=== PATIENT | male | born 1950 | race Caucasian/White ===

== ENCOUNTER 2019-10-26 12:51 | Inpatient (IN) ==
[2019-10-26] MEDS ORDERED: XYLOCAINE 1%/SOD BICARB 20 ML VIAL INFIL ONE (13:01)
--- NOTE | 2019-10-26 13:13 | Emergency Department Note ---
History of Present Illness General Chief complaint: Fall Time Seen by Provider: 10/26/19 12:52 Source: patient and EMS History of Present Illness Provider complaint: Nosebleed Onset (ago): hour(s) (4 AM today) Location: face and left Radiation: non-radiation Severity: moderate Pain Consistency: + intermittent Relieved By: + other (Pressure) Associated symptoms: no chest pain, no cough, no fever/chills, no malaise, no nausea/vomiting and no shortness of breath This is a 69-year-old male who presents with a nosebleed. It started at 4 AM today. He states that it has been bleeding on and off intermittently. This is the third time he had to come to the emergency department for this. He states that approximately 10 AM he started having a nosebleed again. He got up to go to the bathroom and when he did so he felt very lightheaded and fell backwards hitting his head on the doorway causing a laceration to his scalp. He did not pass out. He has mild head pain. He denies any neck pain or any other injury from the fall. He has no back pain, chest pain, shortness of breath, abdominal pain, hip or extremity pain. He takes Coumadin for atrial fibrillation. He denies any black or bloody stools. He has no abdominal pain. He does bruise easily. His nosebleed has not stopped. It is helped somewhat by a nasal clamp. Home Medications Home Medications Medication Instructions Recorded Confirmed Type digoxin [Digitek] 250 mcg PO QDL 02/09/19 10/26/19 History metoprolol succinate 100 mg PO BID 02/09/19 10/26/19 History warfarin 7.5 mg PO DAILY 02/09/19 10/26/19 History Allergies Allergy/AdvReac Type Severity Reaction Status Date / Time No Known Allergies Allergy Verified 10/26/19 14:56 Past Med/Surg History Medical History Atrial flutter Multiple falls Surgical History No pertinent past surgical history Family History Other Cancer Social History Preferred Language: Irish Communication Ability: Effective [place] Extension Agent Required: No Beliefs That Will Affect Care: None Current Living Situation: Spouse Other Information That Helps Us Care for You: No Feels Safe at Home: Yes Safety Concerns: Feels Safe At This Time Smoking Status: Former smoker Tobacco Type: smokeless tobacco ; Do You Dip or Chew Tobacco: No ; Second Hand Exposure: No ; Tobacco Cessation Education Requested by Patient: No Hx Alcohol Use: Yes Alcohol type: beer Alcohol Intake Frequency: Daily Alcohol Intake Frequency Comment: approx 2 beers daily Hx Substance Use: No Review of Systems See HPI for pertinent positives & negatives. and A total of 10 systems reviewed and were otherwise negative Physical Exam Vital Signs Vital Signs - 24 hr 10/26/19 13:00 10/26/19 13:04 10/26/19 13:07 Temperature 36.4 C L Temperature Source Oral Pulse Rate 99 H 97 H Pulse Rate [Apical] Pulse Rate from SpO2 Sensor 124 H 100 H Respiratory Rate 17 21 Blood Pressure 95/50 L 91/50 L Blood Pressure [Left Arm] Blood Pressure Mean 69 68 Blood Pressure Mean [Left Arm] Pulse Oximetry 83 L 96 95 Oxygen Delivery Method Room Air Room Air Sepsis Recent Fever Within 48 Hours No Sepsis Action Taken by Nursing No Action Required 10/26/19 13:30 10/26/19 13:32 10/26/19 13:41 Temperature Temperature Source Pulse Rate 99 H 103 H Pulse Rate [Apical] 103 H Pulse Rate from SpO2 Sensor 95 H Respiratory Rate 16 17 Blood Pressure 80/53 L 82/54 L 86/57 L Blood Pressure [Left Arm] 80/53 L Blood Pressure Mean 57 70 67 Blood Pressure Mean [Left Arm] 62 Pulse Oximetry 94 Oxygen Delivery Method Room Air Sepsis Recent Fever Within 48 Hours Sepsis Action Taken by Nursing 10/26/19 13:52 10/26/19 14:00 10/26/19 14:01 Temperature Temperature Source Pulse Rate 102 H 96 H Pulse Rate [Apical] Pulse Rate from SpO2 Sensor Respiratory Rate 16 13 Blood Pressure 90/64 L 87/59 L Blood Pressure [Left Arm] Blood Pressure Mean 78 76 Blood Pressure Mean [Left Arm] Pulse Oximetry Oxygen Delivery Method Sepsis Recent Fever Within 48 Hours Sepsis Action Taken by Nursing 10/26/19 14:30 10/26/19 14:31 10/26/19 15:00 Temperature Temperature Source Pulse Rate 97 H 101 H 103 H Pulse Rate [Apical] Pulse Rate from SpO2 Sensor Respiratory Rate 20 18 20 Blood Pressure 91/61 L 75/47 L Blood Pressure [Left Arm] Blood Pressure Mean 72 54 Blood Pressure Mean [Left Arm] Pulse Oximetry Oxygen Delivery Method Sepsis Recent Fever Within 48 Hours Sepsis Action Taken by Nursing 10/26/19 15:32 Temperature Temperature Source Pulse Rate 116 H Pulse Rate [Apical] Pulse Rate from SpO2 Sensor Respiratory Rate 21 Blood Pressure 101/58 L Blood Pressure [Left Arm] Blood Pressure Mean 72 Blood Pressure Mean [Left Arm] Pulse Oximetry Oxygen Delivery Method Sepsis Recent Fever Within 48 Hours Sepsis Action Taken by Nursing Constitutional: Vital signs reviewed. Eyes: Pupils are equal round reactive to light. Conjunctiva are noninjected. ENT: Pharynx is clear without erythema or exudate. Active epistaxis from the left nostril. Mucous membranes are moist. Neck supple without meningeal signs. No midline tenderness to the cervical spine. Respiratory: Clear to auscultation bilaterally. Breath sounds are equal bilaterally. Cardiovascular: Irregularly irregular rhythm. Regular rate. GI: Soft, nondistended and nontender. Bowel sounds are present. Musculoskeletal: No peripheral edema. No lower extremity tenderness. Integumentary: 9 cm linear superficial laceration to the top of his head in a sagittal orientation with bleeding from the posterior end. Neurological: The patient is awake and alert. No focal deficits. Psychiatric: Normal affect. Not anxious appearing. Procedures Laceration Laceration 1: Site: scalp Size (cm): 9 Description: linear Depth: simple, single layer Pre-repair: irrigated extensively Skin layer closed with: other (Dermabond) Technique: other (Dermabond) Course Administered Medications Discontinued Medications Sodium Chloride (Nss 1000ml) 500 mls @ 999 mls/hr IV .Q31M ONE Stop: 10/26/19 14:16 Last Infusion: 10/26/19 16:50 Dose: 0 mls/hr Documented by: [id number] Admin: 10/26/19 15:22 Dose: 999 mls/hr Documented by: [id number] Sodium Chloride (Nss 1000ml) 500 mls @ 999 mls/hr IV .Q31M ONE Stop: 10/26/19 15:42 Last Infusion: 10/26/19 15:39 Dose: 0 mls/hr Documented by: [id number] Admin: 10/26/19 15:21 Dose: 999 mls/hr Documented by: [id number] Sodium Chloride (Nss 1000ml) 1,000 mls @ 999 mls/hr IV .Q1H1M ONE Stop: 10/26/19 16:31 Last Infusion: 10/26/19 16:50 Dose: 0 mls/hr Documented by: [id number] Infusion: 10/26/19 16:50 Dose: 0 mls/hr Documented by: [id number] Admin: 10/26/19 15:38 Dose: 999 mls/hr Documented by: [id number] Lidocaine HCl (Buffered Lidocaine 1%) 20 ml INFIL NOW ONE Stop: 10/26/19 13:02 Last Admin: 10/26/19 15:22 Dose: 20 ml Documented by: [id number] Critical Care Time Critical Care Time: Yes Total Critical Care Time: 45 I have personally spent approximately minutes of critical care time in the direct management of this patient. This includes bedside care, interpretation of diagnostic studies, and testing, discussion with consultants, patient, and family members, and other required patient management activities. These minutes are in excess of all separately billable procedures. Medical Decision Making Differential Diagnosis Supratherapeutic INR, ICH, skull fracture, concussion, anemia, dehydration, orthostatic hypotension, epistaxis Medical Records Attestation: I reviewed the patient's medical records. The patient was seen here February 2019 for a nosebleed. At the time his INR was 7. Home Medications Current Medication List: was personally reviewed by me Laboratory Data Attestation: I reviewed the patient's lab results. Result diagrams: 10/26/19 17:32 10/26/19 13:05 Lab Results 10/26/19 10/26/19 10/26/19 Range/Units 13:05 13:05 13:05 WBC (4.8-10.8) K/uL RBC (4.7-6.1) M/uL Hgb (14.0-18.0) g/dL Hct (42-52) % MCV (80-100) fL MCH (25-34) pg MCHC (32-36) g/dL RDW Std Deviation (36.4-46.3) fL RDW Coeff of Salas (11.5-14.5) % Plt Count (130-400) K/uL MPV (7.4-10.4) fL Immature Gran % (Auto) % Neut % (Auto) % Lymph % (Auto) % [place]ack[place]ord % (Auto) % Eos % (Auto) % Baso % (Auto) % Immature Gran # (Auto) (0.00-0.02) K/uL Neut # (Auto) (1.4-6.5) K/uL Lymph # (Auto) (1.2-3.4) K/uL [place]ord # (Auto) (0.11-0.59) K/uL Eos # (Auto) (0-0.5) K/uL Baso # (Auto) (0-0.2) K/uL PT Cancelled 26.1 H INR Cancelled 2.6 H APTT 31.9 H (21.0-31.0) Seconds PTT Ratio 1.1 Sodium 129 L (136-145) mmol/L Potassium 4.6 (3.5-5.1) mmol/L Chloride 95 L (98-107) mmol/L Carbon Dioxide 20 L (21-32) mmol/L Anion Gap 14.0 H (3-11) BUN 14 (7-18) mg/dl Creatinine 0.80 (0.6-1.4) mg/dl Est Cr Clr Drug Dosing 95.7 ml/min Est GFR ( Amer) 105.6 Est GFR (Non-Af Amer) 91.1 BUN/Creatinine Ratio 18.1 (10-20) Glucose 94 (70-99) mg/dl Calcium 7.9 L (8.5-10.1) mg/dl Magnesium 1.5 L (1.8-2.4) mg/dl Total Bilirubin 0.9 (0.2-1) mg/dl AST 28 (15-37) U/L ALT 36 (12-78) U/L Alkaline Phosphatase 46 (45-117) U/L Troponin I < 0.015 (0-0.045) ng/ml Total Protein 5.8 L (6.4-8.2) gm/dl Albumin 2.9 L (3.4-5.0) gm/dl Globulin 2.9 (2.5-4.0) gm/dl Albumin/Globulin Ratio 1.0 (0.9-2) TSH 12.900 H (0.300-4.500) uIu/ml Free T4 0.89 (0.8-1.6) ng/dl Blood Type Antibody Screen Crossmatch 10/26/19 10/26/19 Range/Units 13:05 14:18 WBC 7.42 (4.8-10.8) K/uL RBC 1.91 L (4.7-6.1) M/uL Hgb 7.2 L (14.0-18.0) g/dL Hct 21.0 L (42-52) % MCV 109.9 H (80-100) fL MCH 37.7 H (25-34) pg MCHC 34.3 (32-36) g/dL RDW Std Deviation 55.9 H (36.4-46.3) fL RDW Coeff of Salas 14.1 (11.5-14.5) % Plt Count 157 (130-400) K/uL MPV 9.7 (7.4-10.4) fL Immature Gran % (Auto) 1.3 % Neut % (Auto) 72.9 % Lymph % (Auto) 12.1 % Shackelford % (Auto) 12.8 % Eos % (Auto) 0.5 % Baso % (Auto) 0.4 % Immature Gran # (Auto) 0.10 H (0.00-0.02) K/uL Neut # (Auto) 5.40 (1.4-6.5) K/uL Lymph # (Auto) 0.90 L (1.2-3.4) K/uL [place]ord # (Auto) 0.95 H (0.11-0.59) K/uL Eos # (Auto) 0.04 (0-0.5) K/uL Baso # (Auto) 0.03 (0-0.2) K/uL PT INR APTT (21.0-31.0) Seconds PTT Ratio Sodium (136-145) mmol/L Potassium (3.5-5.1) mmol/L Chloride (98-107) mmol/L Carbon Dioxide (21-32) mmol/L Anion Gap (3-11) BUN (7-18) mg/dl Creatinine (0.6-1.4) mg/dl Est Cr Clr Drug Dosing ml/min Est GFR ( Amer) Est GFR (Non-Af Amer) BUN/Creatinine Ratio (10-20) Glucose (70-99) mg/dl Calcium (8.5-10.1) mg/dl Magnesium (1.8-2.4) mg/dl Total Bilirubin (0.2-1) mg/dl AST (15-37) U/L ALT (12-78) U/L Alkaline Phosphatase (45-117) U/L Troponin I (0-0.045) ng/ml Total Protein (6.4-8.2) gm/dl Albumin (3.4-5.0) gm/dl Globulin (2.5-4.0) gm/dl Albumin/Globulin Ratio (0.9-2) TSH (0.300-4.500) uIu/ml Free T4 (0.8-1.6) ng/dl Blood Type A Positive Antibody Screen NEGATIVE Crossmatch See Detail Imaging Data Radiologist's Impression: HEAD CT NONCONTRAST CT DOSE: 614.27 mGy.cm HISTORY: fall eval for ich TECHNIQUE: Multiaxial CT images of the head were performed without the use of intravenous contrast. Automated exposure control was utilized for this study. A dose lowering technique was utilized adhering to the principles of ALARA. Comparison: Head CT 11/15/2017. Findings: Mild mucosal thickening within the maxillary sinuses. Small fluid levels within the sphenoid sinuses. The mastoid air cells are clear. The calvarium and skull base are intact. There is no mass, hematoma, midline shift, acute infarct. White matter hypodensity is nonspecific but suggestive of microvascular ischemic change. The ventricles and sulci demonstrate mild age- related involutional changes. Impression: 1. No acute intracranial abnormality. 2. Sinus disease as described above. ACT 112: Negative or not required by law. Electronically signed by: Michoacano Panchal M.D. 10/26/2019 2:07 PM Dictated: 10/26/19 1350 Transcribed: 10/26/19 1350 XR chest 1V portable CLINICAL HISTORY: 69 years-old Male presenting with fall eval for infiltrate. TECHNIQUE: Portable upright AP view of the chest was obtained. COMPARISON: None. FINDINGS: Atherosclerosis of the aortic arch. Cardiac silhouette enlarged. Partial obscuration of the left hemidiaphragm with added density of the left lung base. No large effusion though a small left pleural effusion is difficult to exclude. Pleural parenchymal scarring at the apices. No pneumothorax. Degenerative changes of the thoracic spine. Lucency beneath the left hemidiaphragm presumably gaseous distention of stomach. IMPRESSION: 1. Added density of the left lung base may be due to atelectasis, infiltrate, or presence of cardiomegaly. 2. No evidence of volume overload or congestive change. 3. Lucency beneath the left hemidiaphragm presumably gaseous distention of stomach. Correlate for abdominal symptomatology. ACT 112: Negative or not required by law. Electronically signed by: Hugo Fernandez M.D. 10/26/2019 1:19 PM Dictated: 10/26/191316 Transcribed: 10/26/191316 ECG Data Attestation: I personally reviewed and interpreted this ECG as follows: Indication: + weakness Rate (beats per minute): 106 Rhythm: + atrial fibrillation (With RVR) ECG Intervals/blocks: + Normal QRS (Low voltage QRS) ECG ST segments: + ST depression (Less than 1 mm depression in the lateral leads unchanged from prior EKG from June 05, 2008); no ST elevation ECG Findings: no PVCs Comparison ECG Date: from (June 05, 2008) Change: the following changes noted (Atrial fibrillation is new today.) Blood Pressure Blood Pressure Findings: Low blood pressure Head Trauma GCS Score: 15 MDM Narrative I did evaluate the patient as noted above. The patient is presenting after a head injury while on Coumadin. The patient developed a nosebleed at 4 AM which has been going on intermittently throughout the morning. He got up to go the bathroom and developed lightheadedness and hit his head on the doorway. He denies any other injury. He continues to have epistaxis. He did not have syncope. IV access was established. I did place an order for continuous cardiac monitoring. The monitor showed atrial fibrillation with a rate of 99. I did order and personally review the patient's 12-lead EKG as described above. He has atrial fibrillation with mild tachycardia rate of 106. He is low voltage QRS. There are less than [address] depressions in the lateral leads but this was present on his EKG from June 05, 2008. I did order and personally reviewed the images of the patient's chest x-ray as described above. There is a left vincent g density of unclear etiology. He has not had any fever or cough or shortness of breath. I did order and review the patient's blood work as noted in the electronic medical record. He is severely anemic with a hemoglobin of 7.2. He is hyponatremic as well. He has an INR that is therapeutic at 2.6. Troponin is negative. I did order a CT of the head. I did review the images myself as well as the radiology report as described above. There is no evidence of acute intracranial hemorrhage. I did repair the patient scalp laceration as described above. His nose was placed in a nasal clamp and when I remove that he had no bleeding. I did observe him for some time and he had no recurrent bleeding. At 1 point the hospitalist saw the patient and he had some bleeding and I went back to possibly pack the patient. His bleeding had stopped spontaneously and so he declined nasal packing. The patient has been hypotensive throughout his visit here. He was initially given normal saline boluses IV. His blood pressure did improve somewhat but continued to be low. I did order 2 units of packed RBCs to be transfused stat after obtaining informed consent. Presumably he has blood loss possibly from his nosebleed. He does state that he bled quite a bit from his nose at home. He denies having any blood tracking backwards and into his throat. It is possible he has other sources of bleeding and this will need to be investigated further in the hospital. He denies any black or bloody stools. Guaiac testing would likely be positive given that he did swallow some blood throughout the day. I did discuss the test results with the patient. I did discuss the case with the patient case coordinator and hospitalist who assumed care of the patient. Impression & Plan Hypotension due to blood loss, Epistaxis, Symptomatic anemia, Head injury, Laceration of scalp, Fall, Acute hyponatremia, Anticoagulated on Coumadin, Atrial fibrillation with rapid ventricular response Discharge Plan Visit Data *Final* Discharge Date/Time: 10/26/19 16:32 Chief Complaint: Fall ED Provider: Ye Smith Discharge Problem: Hypotension due to blood loss, Epistaxis, Symptomatic anemia, Head injury, Laceration of scalp, Fall, Acute hyponatremia, Anticoagulated on Coumadin, Atrial fibrillation with rapid ventricular response Patient Disposition: Admitted As Inpatient Discharge Instructions Interventions: ED Discharge Assessment Last Done: 10/26/19 16:32 Discharge Problem: Head injury Qualifiers: Encounter type: initial encounter Qualified Code(s): S09.90XA - Unspecified injury of head, initial encounter Laceration of scalp Qualifiers: Encounter type: initial encounter Qualified Code(s): S01.01XA - Laceration without foreign body of scalp, initial encounter Fall Qualifiers: Encounter type: initial encounter Qualified Code(s): W19.XXXA - Unspecified fall, initial encounter
--- NOTE | 2019-10-26 13:20 | XRay Report ---
XR chest 1V portable CLINICAL HISTORY: 69 years-old Male presenting with fall eval for infiltrate. TECHNIQUE: Portable upright AP view of the chest was obtained. COMPARISON: None. FINDINGS: Atherosclerosis of the aortic arch. Cardiac silhouette enlarged. Partial obscuration of the left shelli diaphragm with added density of the left lung base. No large effusion though a small left pleural eff usion is difficult to exclude. Pleural parenchymal scarring at the apices. No pneumothorax. Degenerat lilian changes of the thoracic spine. Lucency beneath the left hemidiaphragm presumably gaseous distenti on of stomach. IMPRESSION: 1. Added density of the left lung base may be due to atelectasis, infiltrate, or presence of cardiom egaly. 2. No evidence of volume overload or congestive change. 3. Lucency beneath the left hemidiaphragm presumably gaseous distention of stomach. Correlate for ab dominal symptomatology. ACT 112: Negative or not required by law. Electronically signed by: Hugo Fernandez M.D. 10/26/2019 1:19 PM
[2019-10-26 13:37] LABS: Alanine Aminotransferase 36 U/L (12-78); Albumin Level 2.9 gm/dl (3.4-5.0); Aspartate Aminotransferase 28 U/L (15-37); BUN Creatinine Ratio 18.1 (10-20); Blood Urea Nitrogen 14 mg/dl (7-18); Calcium 7.9 mg/dl (8.5-10.1); Carbon Dioxide 20 mmol/L (21-32); Chloride 95 mmol/L (98-107); Creatinine Clr Calc Pharmacy 95.7 ml/min; Est GFR (African American) 105.6; Est GFR (Non-African American) 91.1; Glucose 94 mg/dl (70-99); Magnesium 1.5 mg/dl (1.8-2.4); Potassium 4.6 mmol/L (3.5-5.1); Sodium 129 mmol/L (136-145)
[2019-10-26 13:40] LABS: Basophils # (auto) 0.03 K/uL (0-0.2); Basophils % (auto) 0.4 %; Eosinophils # (auto) 0.04 K/uL (0-0.5); Eosinophils % (auto) 0.5 %; Hemoglobin 7.2 g/dL (14.0-18.0); Immature Granulocytes % (auto) 1.3 %; Lymphocytes % (auto) 12.1 %; Mean Corpuscular Hemoglobin 37.7 pg (25-34); Mean Corpuscular Hgb Conc 34.3 g/dL (32-36); Mean Corpuscular Volume 109.9 fL (80-100); Mean Platelet Volume 9.7 fL (7.4-10.4); Monocytes # (auto) 0.95 K/uL (0.11-0.59); Monocytes % (auto) 12.8 %; Neutrophils % (auto) 72.9 %; Platelet Count 157 K/uL (130-400); RDW Coefficient of Variation 14.1 % (11.5-14.5); RDW Standard Deviation 55.9 fL (36.4-46.3); Red Blood Count 1.91 M/uL (4.7-6.1); White Blood Count 7.42 K/uL (4.8-10.8)
[2019-10-26] MEDS ORDERED: SODIUM CHLORIDE 0.9% 1000ML 500 ML IV ONE ×2 (13:46→15:12)
[2019-10-26] MEDS ORDERED: SODIUM CHLORIDE 0.9% 250 ML IV PRN (13:46)
[2019-10-26 13:48] LABS: Alkaline Phosphatase 46 U/L (45-117); Bilirubin,Total 0.9 mg/dl (0.2-1); Globulin 2.9 gm/dl (2.5-4.0); Total Protein 5.8 gm/dl (6.4-8.2); Troponin I < 0.015 ng/ml (0-0.045)
[2019-10-26 13:50] LABS: INR 2.6 (0.9-1.1); Partial Thromboplastin Ratio 1.1; Partial Thromboplastin Time 31.9 Seconds (21.0-31.0); Prothrombin Time 26.1 Seconds (9.0-12.0)
[2019-10-26 14:04] LABS: T4 Free Thyroxine 0.89 ng/dl (0.8-1.6)
--- NOTE | 2019-10-26 14:09 | CT Scan Report ---
HEAD CT NONCONTRAST CT DOSE: 614.27 mGy.cm HISTORY: fall eval for ich TECHNIQUE: Multiaxial CT images of the head were performed without the use of intravenous contrast. A utomated exposure control was utilized for this study. A dose lowering technique was utilized adheri ng to the principles of ALARA. Comparison: Head CT 11/15/2017. Findings: Mild mucosal thickening within the maxillary sinuses. Small fluid levels within the sphenoi d sinuses. The mastoid air cells are clear. The calvarium and skull base are intact. There is no mass , hematoma, midline shift, acute infarct. White matter hypodensity is nonspecific but suggestive of m icrovascular ischemic change. The ventricles and sulci demonstrate mild age-related involutional moeller ges. Impression: 1. No acute intracranial abnormality. 2. Sinus disease as described above. ACT 112: Negative or not required by law. Electronically signed by: Michoacano Panchal M.D. 10/26/2019 2:07 PM
[2019-10-26] MEDS ORDERED: SODIUM CHLORIDE 0.9% 1000ML 1,000 ML IV ONE (15:31)
--- NOTE | 2019-10-26 15:44 | History & Physical Report ---
Date of Service October 26, 2019 Assessment & Plan (1) Symptomatic anemia: This is a 69yo M with a PMH of a flutter on anticoagulation who presents after a nosebleed and subsequent fall at home. Hgb of 7.2 today (last hgb on record was 9.7 in 02/23) -In setting of epistaxis, BP 87/69 with HR of 116 - receiving 2nd liter of NSS -Consented, type & crossed for 2 u prbcs -Repeat H&H ordered for tonight -Monitor vitals closely -Given 5mg vitamin K for coumadin reversal. INR of 2.6- will trend daily (2) Epistaxis: Left-sided epistaxis, bleeding has stopped with nose clamp, no need for packing at this time -Has been a recurrent issue, last nosebleed requiring ED care 1 year prior (3) Multiple falls: Fell this morning following epistaxis, then again in the ED room when his "legs gave out" -Weakness in setting of symptomatic anemia -Fall precautions -PT/OT evaluation -Discharge planning (4) Atrial flutter: Continue metoprolol succinate, digoxin (5) Constipation: Experiencing gas pains, mild distention but no pain -Given GI cocktail, docusate 100mg BID DVT Ppx: SCDs Code status: FULL PCP: Yane Dispo: Admitted to PCU. Discharge planning ordered. Patient seen in collaboration with Dr. Eller. Please see addendum. History of Present Illness Chief Complaint: Epistaxis, fall at home Primary Care Provider: Yahir Che MD This is a 69yo M with a PMH of a flutter on anticoagulation who presents after a nosebleed and subsequent fall at home. Patient states he woke up at 4 in the morning with a nosebleed that persisted on and off. Was getting up to use the bathroom an hour or 2 later and fell in the hallway, landing on the back of his head. Denies loss of consciousness. called an ambulance and patient was brought to the ED for further evaluation. Currently, patient denies any lightheadedness, headache, visual changes, chest pain, palpitations or shortness of breath. Endorses pain on scalp near the laceration site as well as gas pains and some distention of his abdomen. Feels constipated. Denies any paul abdomi nal pain, nausea, vomiting, dysuria, melena or hematochezia. Has had nosebleeds in the past with the most recent one approximately a year ago, per patient. Usually bleeds stop on their own once pressure is applied. Denies needing to see ENT in the past. Is taking Coumadin for history of A flutter and current dose is 7.5 mg daily. Allergies Allergy/AdvReac Type Severity Reaction Status Date / Time No Known Allergies Allergy Verified 10/26/19 14:56 Home Medications Home Medications Medication Instructions Recorded Confirmed Type digoxin [Digitek] 250 mcg PO QDL 02/09/19 10/26/19 History metoprolol succinate 100 mg PO BID 02/09/19 10/26/19 History warfarin 7.5 mg PO DAILY 02/09/19 10/26/19 History Past Med/Surg History Medical History Atrial flutter Multiple falls Surgical History No pertinent past surgical history Family History Other Cancer Social History Preferred Language: Lao Communication Ability: Effective Internal Revenue Agent Required: No Beliefs That Will Affect Care: None Current Living Situation: Spouse Other Information That Helps Us Care for You: No Feels Safe at Home: Yes Safety Concerns: Feels Safe At This Time Smoking Status: Former smoker Tobacco Type: smokeless tobacco ; Do You Dip or Chew Tobacco: No ; Second Hand Exposure: No ; Tobacco Cessation Education Requested by Patient: No Hx Alcohol Use: Yes Alcohol type: beer Alcohol Intake Frequency: Daily Alcohol Intake Frequency Comment: approx 2 beers daily Hx Substance Use: No Review of Systems Review of Systems: At least ten systems reviewed and negative except as noted in the HPI. Physical Exam Physical Exam: General Appearance: WD/WN, vitals as above, elderly male, sitting up in bed, pleasant, conversing easily Head: normocephalic, atraumatic, 9cm laceration that is well-approximated with steri-glue, no bleeding Eyes: normal inspection, PERRL, conjunctivae normal, anicteric sclerae ENT: external ear and nose normal, dried blood surrounding nares, no acute bleeding, clamp in place. Oropharynx normal Neck: trachea midline, no thyromegaly, normal visual inspection Respiratory: normal respiratory effort, lungs clear to auscultation, no wheeze, rales, rhonchi. Normal insp/exp effort, no accessory muscle use Cardiovascular: regular rate, rhythm, no murmur, normal peripheral pulses. Vessels: no JVD or carotid bruit Chest: normal inspection of chest Abdomen/GI: normal bowel sounds, soft, mild distention but nontender, no hepatosplenomegaly Extremities/Musculoskeletal: no cyanosis or clubbing, extremities motor strength 5/5, R dorsum of hand with small area of bruising Neurologic: PERRL, EOMI, accommodation nl, no face palsy, no dysarthria, CN's II-XI intact bilaterally and moves all extremities Psychiatric: A+Ox3, euthymic affect Skin: no rashes, normal color, warm/dry Results & Data Results & Data ([facility]) Vital Signs (Past 12 Hours) Vital Signs Temp Pulse Pulse Resp BP BP Pulse Ox 10/26/19 15:32 116 H 21 101/58 L 10/26/19 15:00 103 H 20 75/47 L 10/26/19 14:31 101 H 18 10/26/19 14:30 97 H 20 91/61 L 10/26/19 14:01 96 H 13 10/26/19 14:00 102 H 16 87/59 L 10/26/19 13:52 90/64 L 10/26/19 13:41 86/57 L 10/26/19 13:32 103 H 17 82/54 L 10/26/19 13:30 99 H 103 H 16 80/53 L 80/53 L 94 10/26/19 13:07 95 10/26/19 13:04 97 H 21 91/50 L 96 10/26/19 13:00 36.4 C L 99 H 17 95/50 L 83 L Laboratory Results Short CBC 10/26/19 Range/Units 13:05 WBC 7.42 (4.8-10.8) K/uL Hgb 7.2 L (14.0-18.0) g/dL Hct 21.0 L (42-52) % Plt Count 157 (130-400) K/uL BMP 10/26/19 13:05 Sodium 129 L Potassium 4.6 Chloride 95 L Carbon Dioxide 20 L BUN 14 Creatinine 0.80 Glucose 94 Calcium 7.9 L Cardiac Enzymes 10/26/19 Range/Units 13:05 Troponin I < 0.015 (0-0.045) ng/ml Liver Function 10/26/19 Range/Units 13:05 Total Bilirubin 0.9 (0.2-1) mg/dl AST 28 (15-37) U/L ALT 36 (12-78) U/L Alkaline Phosphatase 46 (45-117) U/L Albumin 2.9 L (3.4-5.0) gm/dl Diagnostic Findings CT head: Impression: 1. No acute intracranial abnormality. 2. Sinus disease as described above. CXR: IMPRESSION: 1. Added density of the left lung base may be due to atelectasis, infiltrate, or presence of cardiomegaly. 2. No evidence of volume overload or congestive change. 3. Lucency beneath the left hemidiaphragm presumably gaseous distention of stomach. Correlate for abdominal symptomatology. Code Status & VTE Plan VTE Prophylaxis Plan VTE Prophylaxis will be ordered: Yes Supervising Physician Co-Signing Physician Notes Pt was seen and examined. Agreed with Joann HUSTON exam assessment and plan. 69yo M with a PMH of a flutter on anticoagulation presented to the ED for Epistaxis. Pt said that this morning around 4 am he woke up with nose bleeding. He said that he had about 3 episodes of epistaxis today. Pt said that while walking to the bathroom today, he fell and hit his head. In the ER again he fell while going to the bathroom. He said that his legs gave up on him. He aid that he felt weak. he had a laceration in his scalp area due to the fall today. He did not let the ER physician to pack his nose because the bleeding stopped. He said that he had epistaxis episodes in the past, with last episodes about 1 year ago. When he got to the floor, nurse called to inform that he was found to have black liquid stool leaking from rectum.Currently denies any lightheadedness, headache, visual changes, chest pain, palpitations or shortness of breath, abdominal pain, nausea, vomiting, dysuria. CT head showed no acute intracranial abnormality. Lab done in the ER showed hgb 7.2 then dropped to 6.3 after received IVF, INR 2.6. Received IV vitamin K 5mg x1. Types and crossed and transfused 2 units PRBC. Positive FOBT, not sure if true GI bleed or due to ingestion of blood from the epistaxis. Will start on IV PPI. GI consult. Monitor H&H and transfuse if hbg drops bellow 8. Since pt refused any nose packing for now and nose bleeding stopped, will consider ENT consult if epistaxis reoccurs. Continue monitor closely in telemonitor. MD Rafita
[2019-10-26] MEDS ORDERED: PHYTONADIONE 5 MG in SODIUM CHLORIDE 0.9% 50 ML IV ONE (15:45)
[2019-10-26] MEDS ORDERED: ALUMINUM/MAGNESIUM SUSP 18 ML, LIDOCAINE HCL VISCOUS 2% 6 ML, BARCODE IDENTIFIER 1 EA PO ONE (16:00)
--- NOTE | 2019-10-26 16:28 | Electrocardiogram Report ---
Test Reason : Blood Pressure : / mmHG Vent. Rate : 106 BPM Atrial Rate : 108 BPM P-R Int : 000 ms QRS Dur : 088 ms QT Int : 352 ms P-R-T Axes : 000 017 -60 degrees QTc Int : 467 ms Atrial fibrillation with rapid ventricular response Low voltage QRS Nonspecific ST abnormality Abnormal ECG When compared with ECG of 05-JUN-2008 07:22, Atrial fibrillation has replaced Sinus rhythm Nonspecific T wave abnormality, worse in Inferior leads Nonspecific T wave abnormality now evident in Anterolateral leads Confirmed by Emanuel Bullard ([id number]) on 10/26/2019 4:28:42 PM Referred By: Confirmed By:José Bullard
[2019-10-26] MEDS ORDERED: ONDANSETRON INJ 2 MG/ML 2 ML VIAL IV PRN (17:23)
[2019-10-26 18:05] LABS: Hematocrit (blood only) 18.4 % (42-52); Hemoglobin 6.3 g/dL (14.0-18.0)
[2019-10-26] MEDS: ACETAMINOPHEN 500 MG TAB PO SCH ×2 (20:40→23:28)
[2019-10-26] MEDS: DOCUSATE SODIUM 100 MG CAP PO SCH (20:41)
[2019-10-26] MEDS ORDERED: METOPROLOL SUCC 50MG EXT REL TAB PO SCH (21:00)
[2019-10-26] MEDS: PANTOprazole 40 MG in SYRINGE 0 ML IV SCH (21:38)
[2019-10-26] MEDS ORDERED: CALCIUM CARBONATE 500 MG CHEWABLE TAB PO STA (23:33)
[2019-10-26] MEDS ORDERED: MAGNESIUM SULFATE / D5W 1 GM/100 ML BAG IV ONE (23:39)
[2019-10-27 01:58] LABS: INR 1.9 (0.9-1.1)
[2019-10-27 02:03] LABS: Hematocrit (blood only) 22.5 % (42-52); Hemoglobin 7.8 g/dL (14.0-18.0); Mean Corpuscular Hemoglobin 34.8 pg (25-34); Mean Corpuscular Hgb Conc 34.7 g/dL (32-36); Mean Corpuscular Volume 100.4 fL (80-100); Mean Platelet Volume 10.3 fL (7.4-10.4); Platelet Count 107 K/uL (130-400); RDW Coefficient of Variation 19.3 % (11.5-14.5); RDW Standard Deviation 69.2 fL (36.4-46.3); Red Blood Count 2.24 M/uL (4.7-6.1)
[2019-10-27 02:08] LABS: BUN Creatinine Ratio 35.9 (10-20); Calcium 7.9 mg/dl (8.5-10.1); Est GFR (African American) 102.1; Est GFR (Non-African American) 88.1; Potassium 4.9 mmol/L (3.5-5.1)
[2019-10-27 03:07] LABS: Appearance Urine Clear (Clear); Bilirubin Urine Negative (Negative); Blood Urine Negative (Negative); Color Urine Yellow; Glucose Urine UA Negative (Negative); Ketones Urine Negative (Negative); Leukocyte Esterase Urine Negative (Negative); Nitrite Urine Negative (Negative); Protein Urine Negative (Negative); Specific Gravity Urine 1.012 (1.000-1.030); Urobilinogen Urine Negative (Negative); pH Urine 6.5 (4.5-7.5)
[2019-10-27] MEDS ORDERED: ACETAMINOPHEN 500 MG TAB PO PRN (07:43)
--- NOTE | 2019-10-27 07:44 | Hospitalist Progress Note ---
Date of Service October 27, 2019 Assessment & Plan (1) Acute blood loss anemia: Acute blood loss anemia secondary to anterior epistaxis. Bleeding has stopped and patient received 2 units of leukocyte reduced packed red blood cells overnight. H&H appears stable. Holding Coumadin at this time. (2) Epistaxis: Left-sided epistaxis beginning yesterday which has stopped with a clamp used overnight. Clamp is off now and no further bleeding. The patient did not require any nasal packing. Per ENT continue Afrin, mupirocin, nasal saline. (3) Multiple falls: Weakness and multiple falls within the last 24 hours. -Fall precautions -PT/OT evaluation (4) Atrial fibrillation with rapid ventricular response: Tachycardia is likely partially secondary to compensation after acute blood loss. Decreased beta-selina by 50%. Continue digoxin. Holding Coumadin. (5) Constipation: Docusate twice daily. Ambulate as tolerated. (6) DVT prophylaxis: Chemoprophyaxis contraindicated in setting of acute blood loss anemia Full code Dispo-cont hospitalization until hemodynamically stable with stable H/H. Pending PT/OT evaluation and recommendations. Bridgette Cho DO [facility] Hospitalist Admission and Anticipated Discharge Date Admission Date: October 26, 2019 Subjective 69-year-old anticoagulated man on Coumadin presented with acute epistaxis. Intermittent epistaxis noted in the ER which improved prior to admission to the floor. He had no bleeding overnight but remained hypotensive and tachycardic. He did require 2 units of blood to be transfused overnight. H&H appear stable and he is not bleeding any longer. He reports feeling better than he did yesterday. He is tolerating p.o. He denies any pain. He denies any lightheadedness with standing. He did work with therapy this morning. Review of Systems Review of Systems: All systems reviewed & are unremarkable except as noted in Subjective Physical Exam Physical Exam: CONSTITUTIONAL: WNWD, vitals as above, generally well-ap pearing EYES: normal conjunctivae, no scleral icterus ENT: external ear and nose normal, oropharynx clear, poor dentition. Dried blood noted in nares. NECK: trachea midline RESPIRATORY: clear to auscultation bilaterally, no crackles, rales or wheezes, normal respiratory effort CARDIOVASCULAR: irregular rate and irreg rhythm, S1 and 2 heard without murmurs, gallops or rubs, no JVD, no peripheral edema GASTROINTESTINAL: soft, nontender, nondistended MUSCULOSKELETAL: head is normocephalic, small closed lac on top of head that is closed with dermabond. No surrounding erythema. Uses all extremities equally. SKIN: warm and dry, wound as above. NEUROLOGIC: CN 2-12 grossly intact, normal cognition, normal speech, no gross focal deficits. PSYCHIATRIC: alert cooperative and oriented to person, place and time. Results & Data Results & Data ([facility]) Vital Signs (Past 12 Hours) Vital Signs Temp Pulse Pulse Resp BP BP Pulse Ox 10/27/19 03:30 37.4 C 105 H 18 91/60 L 94 10/27/19 00:07 36.8 C 117 H 20 103/61 100 10/27/19 00:05 36.7 C 95/64 L 10/26/19 23:45 37.4 C 110 H 18 102/68 95 10/26/19 22:43 36.7 C 95/64 L 10/26/19 22:29 37.1 C 92/57 L 10/26/19 22:13 37.2 C 94/53 L 10/26/19 21:55 37.2 C 115 H 20 84/65 L 10/26/19 20:44 36.9 C 111 H 97/65 L 10/26/19 20:16 36.7 C 105 H 20 90/61 L 99 Laboratory Results Short CBC 10/26/19 10/26/19 10/27/19 Range/Units 13:05 17:32 01:09 WBC 7.42 6.40 (4.8-10.8) K/uL Hgb 7.2 L 6.3 L* 7.8 L (14.0-18.0) g/dL Hct 21.0 L 18.4 L* 22.5 L (42-52) % Plt Count 157 107 L (130-400) K/uL BMP 10/26/19 10/27/19 13:05 01:09 Sodium 129 L 132 L Potassium 4.6 4.9 Chloride 95 L 100 Carbon Dioxide 20 L 25 BUN 14 31 H D Creatinine 0.80 0.87 Glucose 94 103 H Calcium 7.9 L 7.9 L Cardiac Enzymes 10/26/19 Range/Units 13:05 Troponin I < 0.015 (0-0.045) ng/ml Liver Function 10/26/19 Range/Units 13:05 Total Bilirubin 0.9 (0.2-1) mg/dl AST 28 (15-37) U/L ALT 36 (12-78) U/L Alkaline Phosphatase 46 (45-117) U/L Albumin 2.9 L (3.4-5.0) gm/dl Urine 10/27/19 Range/Units 02:50 Urine Color Yellow Urine Appearance Clear (Clear) Urine pH 6.5 (4.5-7.5) Ur Specific [place] 1.012 (1.000-1.030) Urine Protein Negative (Negative) Urine Glucose (UA) Negative (Negative) Medications Administered Current Inpatient Medications Acetaminophen (Tylenol) 1,000 mg PO Q8H PRN PRN Reason: pain or fever Stop: 11/25/19 15:44 Digoxin (Lanoxin) 0.25 mg PO QDL [facility] Stop: 11/26/19 11:29 Docusate Sodium (Colace) 100 mg PO BID [facility] Stop: 11/25/19 20:59 Last Admin: 10/26/19 20:41 Dose: Not Given Documented by: Pantoprazole Sodium 40 mg/ (Syringe) 10 mls @ 5 mls/min IV BID [facility] Stop: 11/25/19 20:59 Last Admin: 10/26/19 21:38 Dose: 5 mls/min Documented by: Metoprolol Succinate (Toprol Xl) 50 mg PO BID [facility] Stop: 11/26/19 08:59 Ondansetron HCl (Zofran) 4 mg IV Q6H PRN PRN Reason: Nausea Stop: 11/25/19 17:22
[2019-10-27] MEDS: PANTOprazole 40 MG in SYRINGE 0 ML IV SCH ×2 (08:02→21:14)
[2019-10-27] MEDS: METOPROLOL SUCC 50MG EXT REL TAB PO SCH ×2 (08:02→21:21)
[2019-10-27] MEDS: DOCUSATE SODIUM 100 MG CAP PO SCH ×2 (08:02→21:13)
--- NOTE | 2019-10-27 08:54 | Gastrointestinal Consultation ---
Date of Consultation October 27, 2019 Assessment & Plan (1) Symptomatic anemia: 69 year old male with aflutter on coumadin admitted with nose bleed, symptomatic anemia - GI asked to evaluate for dark stools. DDX discussed: ingested blood from nosebleed vs true UGI bleed - Trend HGB - Monitor and document GI output - Transfuse PRN as need per primary team - Patient refused EGD for evaluation of dark stools - Discussed anemia, dark stools and highly recommended he reconsider OP EGD/Colonoscopy as he is not agreeable to IP EGD - Will sign off, recall if needed. Thank you for allowing us to participate in the care of this patient. Please call with any acute changes, questions or concerns. Please see addendum below with additional recommendation from my supervising physician. (2) Epistaxis: (3) Anticoagulated on Coumadin: Supervising Physician Co-Signing Physician Notes I saw and evaluated the patient. We were consulted for question of melena in the setting of significant epistaxis. The epistaxis is most likely the cause of the patient's melena. We did offer him upper endoscopy today however the patient has declined he would consider outpatient evaluation with colonoscopy in the near future. Recommendations Consider ENT evaluation Colonoscopy to be arranged as outpatient, upper endoscopy offered declined by patient Please call with any questions or concerns History of Present Illness Reason for Consultation: dark stool, melena Requesting Physician: Marquis Attending Physician: Bridgette Cho, DO History of Present Illness 69 year old male w/ history a-flutter on coumadin who presents after a nosebleed and subsequent fall at home - GI asked to evaluate as dark, tarry stool was noted by nursing staff. Pt was seen and evaluated, chart reviewed. He suggests he had a severe nose bleed for about 5/6 hours. Notes he was swallowing the blood when nose bleed was severe. Denies any abd pain. No nausea, vomiting. No coffee ground emesis or hematemesis. He does tell me he has seen intermittent dark stools in the past. Not always associated with nose bleed. No BRBPR. Denies weight loss. Has never had EGD/Colonoscopy. I asked why he has not - suggests he was never really offered screening. I discussed EGD/Colon at length today. He refused EGD. He notes he will consider OP colonoscopy. This AM denies lightheadedness, dizziness, CP, SOB. Allergies Allergy/AdvReac Type Severity Reaction Status Date / Time No Known Allergies Allergy Verified 10/26/19 14:56 Home Medications Home Medications Medication Instructions Recorded Confirmed Type digoxin [Digitek] 250 mcg PO QDL 02/09/19 10/26/19 History metoprolol succinate 100 mg PO BID 02/09/19 10/26/19 History warfarin 7.5 mg PO DAILY 02/09/19 10/26/19 History Patient History Medical History Atrial flutter Multiple falls Surgical History No pertinent past surgical history Family History Other Cancer Social History Preferred Language: Jamaican Communication Ability: Effective Electronic Health Records Specialist Required: No Beliefs That Will Affect Care: None Current Living Situation: Spouse Other Information That Helps Us Care for You: No Feels Safe at Home: Yes Safety Concerns: Feels Safe At This Time Smoking Status: Former smoker Tobacco Type: smokeless tobacco ; Do You Dip or Chew Tobacco: No ; Second Hand Exposure: No ; Tobacco Cessation Education Requested by Patient: No Hx Alcohol Use: Yes Alcohol type: beer Alcohol Intake Frequency: Daily Alcohol Intake Frequency Comment: approx 2 beers daily Hx Substance Use: No Review of Systems Constitutional: no fever and no chills Respiratory: no cough and no dyspnea Cardiovascular: no chest pain and no dyspnea Gastrointestinal: no abdominal pain, no coffee ground emesis, no hematemesis, no dysphagia, no blood in stools and no melena Physical Exam Constitutional: no acute distress and not ill appearing Neck: trachea midline Respiratory: normal respiratory effort Cardiovascular: Rate/Rhythm: regular rate Gastrointestinal (Abdomen): Percussion/Palpation: abdomen soft; abdomen nontender, no guarding and abdomen not rigid Skin: no rashes, warm and dry Results & Data ([facility]) Vital Signs (Past 12 Hours) Vital Signs Temp Pulse Pulse Resp BP BP Pulse Ox 10/27/19 03:30 37.4 C 105 H 18 91/60 L 94 10/27/19 00:07 36.8 C 117 H 20 103/61 100 10/27/19 00:05 36.7 C 95/64 L 10/26/19 23:45 37.4 C 110 H 18 102/68 95 10/26/19 22:43 36.7 C 95/64 L 10/26/19 22:29 37.1 C 92/57 L 10/26/19 22:13 37.2 C 94/53 L 10/26/19 21:55 37.2 C 115 H 20 84/65 L Laboratory Results 10/27/19 10/27/19 10/27/19 Range/Units 02:50 01:09 01:09 WBC 6.40 (4.8-10.8) K/uL RBC 2.24 L (4.7-6.1) M/uL Hgb 7.8 L (14.0-18.0) g/dL Hct 22.5 L (42-52) % MCV 100.4 H D (80-100) fL MCH 34.8 H (25-34) pg MCHC 34.7 (32-36) g/dL RDW Std Deviation 69.2 H (36.4-46.3) fL RDW Coeff of Salas 19.3 H (11.5-14.5) % Plt Count 107 L (130-400) K/uL MPV 10.3 (7.4-10.4) fL Immature Gran % (Auto) % Neut % (Auto) % Lymph % (Auto) % Coos % (Auto) % Eos % (Auto) % Baso % (Auto) % Immature Gran # (Auto) (0.00-0.02) K/uL Neut # (Auto) (1.4-6.5) K/uL Lymph # (Auto) (1.2-3.4) K/uL Coos # (Auto) (0.11-0.59) K/uL Eos # (Auto) (0-0.5) K/uL Baso # (Auto) (0-0.2) K/uL PT INR APTT (21.0-31.0) Seconds PTT Ratio Sodium 132 L (136-145) mmol/L Potassium 4.9 (3.5-5.1) mmol/L Chloride 100 (98-107) mmol/L Carbon Dioxide 25 (21-32) mmol/L Anion Gap 7.0 (3-11) BUN 31 H D (7-18) mg/dl Creatinine 0.87 (0.6-1.4) mg/dl Est Cr Clr Drug Dosing 88.0 ml/min Est GFR ( Amer) 102.1 Est GFR (Non-Af Amer) 88.1 BUN/Creatinine Ratio 35.9 H (10-20) Glucose 103 H (70-99) mg/dl Calcium 7.9 L (8.5-10.1) mg/dl Magnesium (1.8-2.4) mg/dl Total Bilirubin (0.2-1) mg/dl AST (15-37) U/L ALT (12-78) U/L Alkaline Phosphatase (45-117) U/L Troponin I (0-0.045) ng/ml Total Protein (6.4-8.2) gm/dl Albumin (3.4-5.0) gm/dl Globulin (2.5-4.0) gm/dl Albumin/Globulin Ratio (0.9-2) TSH (0.300-4.500) uIu/ml Free T4 (0.8-1.6) ng/dl Urine Color Yellow Urine Appearance Clear (Clear) Urine pH 6.5 (4.5-7.5) Ur Specific Drain 1.012 (1.000-1.030) Urine Protein Negative (Negative) Urine Glucose (UA) Negative (Negative) Urine Ketones Negative (Negative) Urine Blood Negative (Negative) Urine Nitrite Negative (Negative) Urine Bilirubin Negative (Negative) Urine Urobilinogen Negative (Negative) Ur Leukocyte Esterase Negative (Negative) Stool Occult Bld Scrn (Negative) Blood Type Blood Type Recheck Antibody Screen Crossmatch 10/27/19 10/26/19 10/26/19 Range/Units 01:09 18:00 17:32 WBC (4.8-10.8) K/uL RBC (4.7-6.1) M/uL Hgb 6.3 L* (14.0-18.0) g/dL Hct 18.4 L* (42-52) % MCV (80-100) fL MCH (25-34) pg MCHC (32-36) g/dL RDW Std Deviation (36.4-46.3) fL RDW Coeff of Salas (11.5-14.5) % Plt Count (130-400) K/uL MPV (7.4-10.4) fL Immature Gran % (Auto) % Neut % (Auto) % Lymph % (Auto) % Coos % (Auto) % Eos % (Auto) % Baso % (Auto) % Immature Gran # (Auto) (0.00-0.02) K/uL Neut # (Auto) (1.4-6.5) K/uL Lymph # (Auto) (1.2-3.4) K/uL Coos # (Auto) (0.11-0.59) K/uL Eos # (Auto) (0-0.5) K/uL Baso # (Auto) (0-0.2) K/uL PT 19.0 H INR 1.9 H APTT (21.0-31.0) Seconds PTT Ratio Sodium (136-145) mmol/L Potassium (3.5-5.1) mmol/L Chloride (98-107) mmol/L Carbon Dioxide (21-32) mmol/L Anion Gap (3-11) BUN (7-18) mg/dl Creatinine (0.6-1.4) mg/dl Est Cr Clr Drug Dosing ml/min Est GFR ( Amer) Est GFR (Non-Af Amer) BUN/Creatinine Ratio (10-20) Glucose (70-99) mg/dl Calcium (8.5-10.1) mg/dl Magnesium (1.8-2.4) mg/dl Total Bilirubin (0.2-1) mg/dl AST (15-37) U/L ALT (12-78) U/L Alkaline Phosphatase (45-117) U/L Troponin I (0-0.045) ng/ml Total Protein (6.4-8.2) gm/dl Albumin (3.4-5.0) gm/dl Globulin (2.5-4.0) gm/dl Albumin/Globulin Ratio (0.9-2) TSH (0.300-4.500) uIu/ml Free T4 (0.8-1.6) ng/dl Urine Color Urine Appearance (Clear) Urine pH (4.5-7.5) Ur Specific Drain (1.000-1.030) Urine Protein (Negative) Urine Glucose (UA) (Negative) Urine Ketones (Negative) Urine Blood (Negative) Urine Nitrite (Negative) Urine Bilirubin (Negative) Urine Urobilinogen (Negative) Ur Leukocyte Esterase (Negative) Stool Occult Bld Scrn Positive A (Negative) Blood Type Blood Type Recheck Antibody Screen Crossmatch 10/26/19 10/26/19 10/26/19 Range/Units 16:33 14:18 13:05 WBC 7.42 (4.8-10.8) K/uL RBC 1.91 L (4.7-6.1) M/uL Hgb 7.2 L (14.0-18.0) g/dL Hct 21.0 L (42-52) % MCV 109.9 H (80-100) fL MCH 37.7 H (25-34) pg MCHC 34.3 (32-36) g/dL RDW Std Deviation 55.9 H (36.4-46.3) fL RDW Coeff of Salas 14.1 (11.5-14.5) % Plt Count 157 (130-400) K/uL MPV 9.7 (7.4-10.4) fL Immature Gran % (Auto) 1.3 % Neut % (Auto) 72.9 % Lymph % (Auto) 12.1 % Coos % (Auto) 12.8 % Eos % (Auto) 0.5 % Baso % (Auto) 0.4 % Immature Gran # (Auto) 0.10 H (0.00-0.02) K/uL Neut # (Auto) 5.40 (1.4-6.5) K/uL Lymph # (Auto) 0.90 L (1.2-3.4) K/uL Coos # (Auto) 0.95 H (0.11-0.59) K/uL Eos # (Auto) 0.04 (0-0.5) K/uL Baso # (Auto) 0.03 (0-0.2) K/uL PT INR APTT (21.0-31.0) Seconds PTT Ratio Sodium (136-145) mmol/L Potassium (3.5-5.1) mmol/L Chloride (98-107) mmol/L Carbon Dioxide (21-32) mmol/L Anion Gap (3-11) BUN (7-18) mg/dl Creatinine (0.6-1.4) mg/dl Est Cr Clr Drug Dosing ml/min Est GFR ( Amer) Est GFR (Non-Af Amer) BUN/Creatinine Ratio (10-20) Glucose (70-99) mg/dl Calcium (8.5-10.1) mg/dl Magnesium (1.8-2.4) mg/dl Total Bilirubin (0.2-1) mg/dl AST (15-37) U/L ALT (12-78) U/L Alkaline Phosphatase (45-117) U/L Troponin I (0-0.045) ng/ml Total Protein (6.4-8.2) gm/dl Albumin (3.4-5.0) gm/dl Globulin (2.5-4.0) gm/dl Albumin/Globulin Ratio (0.9-2) TSH (0.300-4.500) uIu/ml Free T4 (0.8-1.6) ng/dl Urine Color Urine Appearance (Clear) Urine pH (4.5-7.5) Ur Specific Drain (1.000-1.030) Urine Protein (Negative) Urine Glucose (UA) (Negative) Urine Ketones (Negative) Urine Blood (Negative) Urine Nitrite (Negative) Urine Bilirubin (Negative) Urine Urobilinogen (Negative) Ur Leukocyte Esterase (Negative) Stool Occult Bld Scrn (Negative) Blood Type A Positive Blood Type Recheck A Positive Antibody Screen NEGATIVE Crossmatch See Detail 10/26/19 10/26/19 10/26/19 Range/Units 13:05 13:05 13:05 WBC (4.8-10.8) K/uL RBC (4.7-6.1) M/uL Hgb (14.0-18.0) g/dL Hct (42-52) % MCV (80-100) fL MCH (25-34) pg MCHC (32-36) g/dL RDW Std Deviation (36.4-46.3) fL RDW Coeff of Salas (11.5-14.5) % Plt Count (130-400) K/uL MPV (7.4-10.4) fL Immature Gran % (Auto) % Neut % (Auto) % Lymph % (Auto) % Coos % (Auto) % Eos % (Auto) % Baso % (Auto) % Immature Gran # (Auto) (0.00-0.02) K/uL Neut # (Auto) (1.4-6.5) K/uL Lymph # (Auto) (1.2-3.4) K/uL Coos # (Auto) (0.11-0.59) K/uL Eos # (Auto) (0-0.5) K/uL Baso # (Auto) (0-0.2) K/uL PT 26.1 H Cancelled INR 2.6 H Cancelled APTT 31.9 H (21.0-31.0) Seconds PTT Ratio 1.1 Sodium 129 L (136-145) mmol/L Potassium 4.6 (3.5-5.1) mmol/L Chloride 95 L (98-107) mmol/L Carbon Dioxide 20 L (21-32) mmol/L Anion Gap 14.0 H (3-11) BUN 14 (7-18) mg/dl Creatinine 0.80 (0.6-1.4) mg/dl Est Cr Clr Drug Dosing 95.7 ml/min Est GFR ( Amer) 105.6 Est GFR (Non-Af Amer) 91.1 BUN/Creatinine Ratio 18.1 (10-20) Glucose 94 (70-99) mg/dl Calcium 7.9 L (8.5-10.1) mg/dl Magnesium 1.5 L (1.8-2.4) mg/dl Total Bilirubin 0.9 (0.2-1) mg/dl AST 28 (15-37) U/L ALT 36 (12-78) U/L Alkaline Phosphatase 46 (45-117) U/L Troponin I < 0.015 (0-0.045) ng/ml Total Protein 5.8 L (6.4-8.2) gm/dl Albumin 2.9 L (3.4-5.0) gm/dl Globulin 2.9 (2.5-4.0) gm/dl Albumin/Globulin Ratio 1.0 (0.9-2) TSH 12.900 H (0.300-4.500) uIu/ml Free T4 0.89 (0.8-1.6) ng/dl Urine Color Urine Appearance (Clear) Urine pH (4.5-7.5) Ur Specific Drain (1.000-1.030) Urine Protein (Negative) Urine Glucose (UA) (Negative) Urine Ketones (Negative) Urine Blood (Negative) Urine Nitrite (Negative) Urine Bilirubin (Negative) Urine Urobilinogen (Negative) Ur Leukocyte Esterase (Negative) Stool Occult Bld Scrn (Negative) Blood Type Blood Type Recheck Antibody Screen Crossmatch
[2019-10-27] MEDS ORDERED: SODIUM CHLORIDE 0.65% NA SOLN 45 ML (OCEAN) ONE (11:19)
--- NOTE | 2019-10-27 11:19 | ENT Consultation ---
Date of Consultation October 27, 2019 Assessment & Plan (1) Epistaxis: The patient has a history of left-sided epistaxis which, based on lab findings, tachycardia, and hypotension, was quite significant. He has a history of a flutter and is on Coumadin. His INR was mildly supratherapeutic on a dmission. His vital signs have normalized after transfusion and fluid bolus. There is no further active epistaxis since admission. There is no obvious source on anterior rhinoscopy, however there is clot in the left mid nasal cavity which could be overlying a potential source. -Afrin 3 sprays t.i.d. for 3 days only, additional as needed for epistaxis -nasal saline spray 4 times daily scheduled -mupirocin ointment to the left naris b.i.d. for 14 days -in the event of further epistaxis, recommend that the patient gently blow his nose to clear clot. Then recommend application of copious Afrin to the affected nostril and direct pressure over the soft fleshy tip of the nose for 10-15 minutes without peeking. If this does not resolve epistaxis, please page the ENT on-call -avoid instrumentation of the nasal cavities -follow up in my office in 2 weeks or sooner if needed. My office will reach out to schedule this appointment, however our number is [phone] with questions History of Present Illness Reason for Consultation: L epistaxis Attending Physician: Bridgette Cho DO History of Present Illness 69-year-old male with a history of aflutter on Coumadin seen in consultation for left epistaxis. Patient reports that he sustained fall yesterday in the morning and subsequently developed left-sided epistaxis. Jordyn is contradictory to his in-patient history and physical as well as the emergency room note, which describes intermittent left-sided epistaxis beginning yesterday morning and eventually resulting in a patient fall x2 while ambulating. He was seen in the emergency room yesterday and epistaxis was stopped with a nasal clamp. He has had no further bleeding since admission. His hemoglobin was noted to be 6.3 he was tachycardic and hypotensive. For this reason, he was transfused b2u pRBCs. INR was 2.6 on admission, now 1.9. He had an episode of melena but refused EGD. Patient reports that he has had previous left-sided epistaxis, however not for many years. He denies prior nasal surgery, trauma, or cauterization. He denies any nasal regimen. Allergies Allergy/AdvReac Type Severity Reaction Status Date / Time No Known Allergies Allergy Verified 10/26/19 14:56 Home Medications Home Medications Medication Instructions Recorded Confirmed Type digoxin [Digitek] 250 mcg PO QDL 02/09/19 10/26/19 History metoprolol succinate 100 mg PO BID 02/09/19 10/26/19 History warfarin 7.5 mg PO DAILY 02/09/19 10/26/19 History Patient History Medical History Atrial flutter Multiple falls Surgical History No pertinent past surgical history Family History Other Cancer Social History Preferred Language: [place] Korean Communication Ability: Effective Juvenile Justice Officer Required: No Beliefs That Will Affect Care: None Current Living Situation: Spouse Other Information That Helps Us Care for You: No Feels Safe at Home: Yes Safety Concerns: Feels Safe At This Time Smoking Status: Former smoker Tobacco Type: smokeless tobacco ; Do You Dip or Chew Tobacco: No ; Second Hand Exposure: No ; Tobacco Cessation Education Requested by Patient: No Hx Alcohol Use: Yes Alcohol type: beer Alcohol Intake Frequency: Daily Alcohol Intake Frequency Comment: approx 2 beers daily Hx Substance Use: No Physical Exam Physical Exam: General: The patient is well-developed, well-nourished, and in no acute distress. PALE Head and Face: Skull: No obvious deformities Sinus tenderness: There is no tenderness to palpation of the sinuses. Salivary glands: The parotid and submandibular glands are normal in appearance and there are no masses on palpation. Facial strength: Facial motion is symmetric and without weakness. Eyes: Eyelids: There is no periorbital edema. Conjunctiva: There is no conjunctival erythema, CONJUNCTIVA PALLOR IS NOTED Pupils: The pupils are equal, round, and reactive to light. Extraocular muscles: Extraocular movement is normal. Nystagmus: There is no nystagmus. Ears: Right auricle: The pinna is normally formed without skin lesion or mass. Left auricle: The pinna is normally formed without skin lesion or mass. Hearing: Clinical speech dietitian teacher threshold testing is GROSSLY SOMEWHAT DECREASED Nose: External: There is no gross external deformity, tenderness, or skin lesion or mass. Mucosa: There is no nasal mucosal edema, inflammation, lesion, or mass. Septum: The nasal septum is midline. Nasal cavity: THERE IS NO ACTIVE EPISTAXIS. ANTERIOR RHINOSCOPY SHOWS A CLEAR RIGHT NASAL CAVITY WITH NORMAL APPEARING SEPTUM AND INFERIOR TURBINATE. ANTERIOR RHINOSCOPY OF THE LEFT NASAL CAVITY SHOWS A NORMAL APPEARING ANTERIOR SEPTUM WITHOUT ULCERATION, LESION, OR PROMINENT VESSEL TO SUGGEST SOURCE OF EPISTAXIS. THERE IS SOME CLOT AROUND THE MIDDLE TURBINATE IN THE MID NASAL CAVITY BUT NO ACTIVE BLEEDING. Oral cavity/Oropharynx: Lips: There are no lip lesions or masses. Oral cavity: There is no inflammation, lesion, or mass involving the gums, gingiva, floor of mouth, buccal mucosa, retromolar trigone, hard palate, soft palate, tongue. Dentition is intact. Oropharynx: There is no inflammation, lesion, or mass involving the palatine tonsils or posterior pharyngeal wall. NO OROPHARYNGEAL BLEEDING. Neck: General: There are no visible scars or lesions involving the neck. There are no visible or palpable masses involving the neck. The trachea is midline. Lymph nodes: There is no visible or palpable neck lymphadenopathy. Thyroid: There is no visible or palpable thyroid enlargement or nodularity. Respiratory/Pulmonary: There is no stertor or stridor. There is normal respiratory effort without acute distress. Cardiovascular: There is no visible extremity edema. Skin: There are no visible lesions or masses involving the skin of the head and neck region. THERE IS AN APPROXIMATELY 5 CM SCALP LACERATION WHICH WAS CLOSED WITH GLUE. WELL-HEALED RIGHT FRONTAL INCISION. Neurological: Cranial nerves: Cranial nerve II is noted to be intact by grossly normal visual acuity. Cranial nerves III, IV, and are noted to be intact by normal extraocular movements. Cranial nerve V is noted to be intact by normal facial sensation. Cranial nerve VII is noted to be intact by symmetric and normal facial movement. Cranial nerve VIII is noted to be intact by a relatively normal clinical speech dietitian teacher threshold. Cranial nerve IX is noted to be intact by an intact gag reflex and normal palatal movement. Cranial nerve X is noted to be intact by a normal voice. Cranial nerve XI is noted to be intact by normal shoulder and head movement. Cranial nerve XII is noted to be intact by normal symmetric tongue movement. Vestibular system: The patient has a normal gait. There is no spontaneous or gaze evoked nystagmus. Psychiatric: Mental status: The patient is awake and alert. Mood/affect: The patient has a normal mood and affect. Results & Data ([facility]) Vital Signs (Past 12 Hours) Vital Signs Temp Pulse Pulse Resp BP BP Pulse Ox 10/27/19 09:01 37.4 C 104 H 20 96/60 L 97 10/27/19 03:30 37.4 C 105 H 18 91/60 L 94 10/27/19 00:07 36.8 C 117 H 20 103/61 100 10/27/19 00:05 36.7 C 95/64 L 10/26/19 23:45 37.4 C 110 H 18 102/68 95 PG Care Time/CCT Total # of Minutes Spent Total Time Spent with Patient: Total time spent is greater than 50% in coordination of care (as documented) at patient's floor/unit and/or counseling patient: Coding Level of Care Code 20122 Inpt Consult Level 4 Diagnoses Epistaxis R04.0
[2019-10-27] MEDS: DIGOXIN 0.25 MG TAB PO SCH (11:21)
[2019-10-27] MEDS: MUPIROCIN 2% OINT 22 GM TUBE EXT SCH ×2 (11:21→21:14)
[2019-10-27] MEDS: SODIUM CHLORIDE 0.65% NA SOLN 45 ML (OCEAN) NAE SCH ×3 (12:22→21:13)
[2019-10-27] MEDS: OXYMETAZOLINE 0.05% 30 ML BTL NAE SCH ×2 (14:05→21:13)
[2019-10-27 14:22] LABS: Hematocrit (blood only) 21.5 % (42-52); Hemoglobin 7.6 g/dL (14.0-18.0)
[2019-10-28 07:39] LABS: INR 1.3 (0.9-1.1); Prothrombin Time 13.5 Seconds (9.0-12.0)
--- NOTE | 2019-10-28 07:42 | Hospitalist Progress Note ---
Date of Service October 28, 2019 Assessment & Plan (1) Hemorrhagic disorder due to circulating anticoagulants: Warfarin held, giving 2 more units of blood based on H&H levels this morning. CBC in a.m. (2) Acute blood loss anemia: Acute blood loss anemia secondary to anterior epistaxis. Plan as above. (3) Epistaxis: Left-sided epistaxis which has stopped. The patient did not require any nasal packing. Per ENT continue Afrin, mupirocin, nasal saline. (4) Multiple falls: Weakness and multiple falls within the last 24 hours. -Fall precautions -PT/OT evaluation (5) Atrial fibrillation with rapid ventricular response: Tachycardia has improved, will increase beta-selina back to 100% of home dosing. Continue digoxin. Holding Coumadin. (6) Constipation: Docusate twice daily. Ambulate as tolerated. (7) DVT prophylaxis: Chemoprophyaxis contraindicated in setting of acute blood loss anemia. SCDs/ambulation Full code Dispo-cont hospitalization until hemodynamically stable with stable H/H. Pending PT/OT evaluation and recommendations. Bridgette Cho [facility] and [facility]tic[facility]ated Discharge Date Admission Date: October 26, 2019 Anticipated date of discharge: 10/30/19 Subjective Patient feels well, denies any further bleeding overnight. Denies lightheade dness, chest pain, shortness of breath. Tolerating p.o. Review of Systems Review of Systems: All systems reviewed & are unremarkable except as noted in Subjective Physical Exam Physical Exam: CONSTITUTIONAL: WNWD, vitals as above, generally well- appearing EYES: normal conjunctivae, no scleral icterus ENT: external ear and nose normal, oropharynx clear, poor dentition. NECK: trachea midline RESPIRATORY: clear to auscultation bilaterally, no crackles, rales or wheezes, normal respiratory effort CARDIOVASCULAR: irregular rate and irreg rhythm, S1 and 2 heard without murmurs, gallops or rubs, no JVD, no peripheral edema GASTROINTESTINAL: soft, nontender, nondistended MUSCULOSKELETAL: head is normocephalic, small closed lac on top of head that is closed with dermabond. Healing well. No surrounding erythema. Uses all e xtremities equally. SKIN: warm and dry, wound as above. NEUROLOGIC: CN 2-12 grossly intact, normal cognition, normal speech, no gross focal deficits. PSYCHIATRIC: alert cooperative and oriented to person, place and time. Results & Data Results & Data ([facility]) Vital Signs (Past 12 Hours) Vital Signs Temp Pulse Pulse Resp BP BP Pulse Ox 10/28/19 04:00 37.3 C 102 H 19 95/58 L 94 10/27/19 23:34 92 H 10/27/19 23:09 36.9 C 87 18 97/60 L 92 10/27/19 21:22 108 H 100/54 L Laboratory Results Short CBC 10/28/19 Range/Units 07:06 WBC 4.45 L (4.8-10.8) K/uL Hgb 6.3 L* (14.0-18.0) g/dL Hct 18.6 L* (42-52) % Plt Count 97 L (130-400) K/uL BMP 10/28/19 07:06 Sodium 138 Potassium 3.8 D Chloride 106 Carbon Dioxide 25 BUN 28 H Creatinine 0.94 Glucose 90 Calcium 8.7 Medications Administered Current Inpatient Medications Acetaminophen (Tylenol) 1,000 mg PO Q8H PRN PRN Reason: pain or fever Stop: 11/25/19 15:44 Digoxin (Lanoxin) 0.25 mg PO QDL [facility] Stop: 11/26/19 11:29 Last Admin: 10/27/19 11:21 Dose: 0.25 mg Documented by: Docusate Sodium (Colace) 100 mg PO BID [facility] Stop: 11/25/19 20:59 Last Admin: 10/27/19 21:13 Dose: 100 mg Documented by: Pantoprazole Sodium 40 mg/ (Syringe) 10 mls @ 5 mls/min IV BID [facility] Stop: 11/25/19 20:59 Last Admin: 10/27/19 21:14 Dose: 5 mls/min Documented by: Metoprolol Succinate (Toprol Xl) 50 mg PO BID [facility] Stop: 11/26/19 08:59 Last Admin: 10/27/19 21:21 Dose: 50 mg Documented by: Mupirocin (Bactroban 2%) 1 appln EXT BID [facility] Stop: 11/10/19 10:14 Last Admin: 10/27/19 21:14 Dose: 1 appln Documented by: Ondansetron HCl (Zofran) 4 mg IV Q6H PRN PRN Reason: Nausea Stop: 11/25/19 17:22 Oxymetazoline HCl (Afrin 0.05%) 1 sprays ALVARO TID [facility] Stop: 10/30/19 13:59 Last Admin: 10/27/19 21:13 Dose: 1 sprays Documented by: Sodium Chloride ([place] Nasal) 2 sprays ALVARO QID [facility] Stop: 11/26/19 12:59 Last Admin: 10/27/19 21:13 Dose: 2 sprays Documented by:
[2019-10-28 07:54] LABS: Hematocrit (blood only) 18.6 % (42-52); Hemoglobin 6.3 g/dL (14.0-18.0); Mean Corpuscular Hemoglobin 34.2 pg (25-34); Mean Corpuscular Hgb Conc 33.9 g/dL (32-36); Mean Corpuscular Volume 101.1 fL (80-100); Mean Platelet Volume 9.3 fL (7.4-10.4); Platelet Count 97 K/uL (130-400); Platelet Estimate Decreased (Normal); RDW Coefficient of Variation 20.5 % (11.5-14.5); RDW Standard Deviation 75.1 fL (36.4-46.3); Red Blood Count 1.84 M/uL (4.7-6.1); White Blood Count 4.45 K/uL (4.8-10.8)
[2019-10-28] MEDS: SODIUM CHLORIDE 0.65% NA SOLN 45 ML (OCEAN) NAE SCH ×4 (08:00→20:11)
[2019-10-28 08:08] LABS: BUN Creatinine Ratio 29.4 (10-20); Calcium 8.7 mg/dl (8.5-10.1); Creatinine Clr Calc Pharmacy 81.4 ml/min; Est GFR (African American) 95.5; Est GFR (Non-African American) 82.4; Potassium 3.8 mmol/L (3.5-5.1)
[2019-10-28] MEDS: MUPIROCIN 2% OINT 22 GM TUBE EXT SCH ×2 (08:12→20:11)
[2019-10-28] MEDS: OXYMETAZOLINE 0.05% 30 ML BTL NAE SCH ×3 (08:12→20:11)
[2019-10-28] MEDS: PANTOprazole 40 MG in SYRINGE 0 ML IV SCH (08:12)
[2019-10-28] MEDS: METOPROLOL SUCC 50MG EXT REL TAB PO SCH ×2 (08:13→20:13)
[2019-10-28] MEDS: DOCUSATE SODIUM 100 MG CAP PO SCH ×2 (08:14→20:12)
[2019-10-28] MEDS ORDERED: SODIUM CHLORIDE 0.9% 250 ML IV PRN (08:42)
[2019-10-28] MEDS ORDERED: ACETAMINOPHEN 325 MG TAB PO ONE (09:00)
[2019-10-28] MEDS ORDERED: diphenhydrAMINE HCl 12.5 MG/5 ML UDC PO ONE (10:15)
[2019-10-28] MEDS: DIGOXIN 0.25 MG TAB PO SCH (10:37)
[2019-10-29 06:35] LABS: Hemoglobin 7.9 g/dL (14.0-18.0); Mean Corpuscular Hemoglobin 33.9 pg (25-34); Mean Corpuscular Hgb Conc 34.3 g/dL (32-36); Mean Corpuscular Volume 98.7 fL (80-100); Mean Platelet Volume 9.7 fL (7.4-10.4); Platelet Count 103 K/uL (130-400); RDW Coefficient of Variation 21.3 % (11.5-14.5); RDW Standard Deviation 73.7 fL (36.4-46.3); Red Blood Count 2.33 M/uL (4.7-6.1); White Blood Count 4.32 K/uL (4.8-10.8)
[2019-10-29] MEDS: OXYMETAZOLINE 0.05% 30 ML BTL NAE SCH (08:21)
[2019-10-29] MEDS: MUPIROCIN 2% OINT 22 GM TUBE EXT SCH (08:22)
[2019-10-29] MEDS: SODIUM CHLORIDE 0.65% NA SOLN 45 ML (OCEAN) NAE SCH (08:22)
[2019-10-29] MEDS: DOCUSATE SODIUM 100 MG CAP PO SCH (08:22)
[2019-10-29] MEDS: METOPROLOL SUCC 50MG EXT REL TAB PO SCH (08:23)
--- NOTE | 2019-10-29 09:53 | Discharge Summary ---
Date of Service October 29, 2019 Admission HPI Per Admitting Provider This is a 69yo M with a PMH of a flutter on anticoagulation who presents after a nosebleed and subsequent fall at home. Patient states he woke up at 4 in the morning with a nosebleed that persisted on and off. Was getting up to use the bathroom an hour or 2 later and fell in the hallway, landing on the back of his head. Denies loss of consciousness. called an ambulance and patient was brought to the ED for further evaluation. Currently, patient denies any lightheadedness, headache, visual changes, chest pain, palpitations or shortness of breath. Endorses pain on scalp near the laceration site as well as gas pains and some distention of his abdomen. Feels constipated. Denies any paul abdominal pain, nausea, vomiting, dysuria, melena or hematochezia. Has had nosebleeds in the past with the most recent one approximately a year ago, per patient. Usually bleeds stop on their own once pressure is applied. Denies needing to see ENT in the past. Is taking Coumadin for history of A flutter and current dose is 7.5 mg daily. Admission Exam Per Admitting Provider General Appearance: WD/WN, vitals as above, elderly male, sitting up in bed, pleasant, conversing easily Head: normocephalic, atraumatic, 9cm laceration that is well-approximated with steri-glue, no bleeding Eyes: normal inspection, PERRL, conjunctivae normal, anicteric sclerae ENT: external ear and nose normal, dried blood surrounding nares, no acute bleeding, clamp in place. Oropharynx normal Neck: trachea midline, no thyromegaly, normal visual inspection Respiratory: normal respiratory effort, lungs clear to auscultation, no wheeze, rales, rhonchi. Normal insp/exp effort, no accessory muscle use Cardiovascular: regular rate, rhythm, no murmur, normal peripheral pulses. Vessels: no JVD or carotid bruit Chest: normal inspection of chest Abdomen/GI: normal bowel sounds, soft, mild distention but nontender, no hepatosplenomegaly Extremities/Musculoskeletal: no cyanosis or clubbing, extremities motor strength 5/5, R dorsum of hand with small area of bruising Neurologic: PERRL, EOMI, accommodation nl, no face palsy, no dysarthria, CN's II-XI intact bilaterally and moves all extremities Psychiatric: A+Ox3, euthymic affect Skin: no rashes, normal color, warm/dry Principal Diagnosis epistaxis symptomatic anemia Discharge Exam CONSTITUTIONAL: WNWD, vitals as above, generally well-appearing EYES: normal conjunctivae, no scleral icterus ENT: external ear and nose normal, oropharynx clear, poor dentition. No blood in nares. No sinus tenderness to palpation. NECK: trachea midline, no LAD RESPIRATORY: clear to auscultation bilaterally, no crackles, rales or wheezes, normal respiratory effort CARDIOVASCULAR: irregular rate and irreg rhythm, S1 and 2 heard without murmurs, gallops or rubs, no JVD, no peripheral edema GASTROINTESTINAL: soft, nontender, nondistended MUSCULOSKELETAL: head is normocephalic, small closed lac on top of head that is closed with dermabond. Healing well. No surrounding erythema. Uses all extremities equally. SKIN: warm and dry, wound as above. NEUROLOGIC: CN 2-12 grossly intact, normal cognition, normal speech, no gross focal deficits. PSYCHIATRIC: alert cooperative and oriented to person, place and time. Discharge Data Allergies Allergy/AdvReac Type Severity Reaction Status Date / Time No Known Allergies Allergy Verified 10/26/19 14:56 Consultations 10/26/19 15:03 ED Decision to Admit Stat 10/26/19 17:23 Consult Case Management - Discharge Planning Routine 10/27/19 07:38 Consult Physician Routine 10/27/19 08:00 Consult Gastroenterology Routine Ordered Studies 10/26/19 13:02 CT head/brain wo con Stat Hospital Course (1) Hemorrhagic disorder due to circulating anticoagulants: (2) Acute blood loss anemia: (3) Epistaxis: (4) Multiple falls: (5) Atrial fibrillation with rapid ventricular response: 69-year-old man on warfarin presented with epistaxis and a subsequent fall at home. Blood work revealed anemia and the patient was hypotensive with blood pressure 87/69 and a heart rate in the 1 teens. He received normal saline and was transfused 2 units of packed red blood cells. He was also given IV vitamin K 5 mg for an INR of 2.6 in setting of active bleeding. The bleeding stopped with a nose clamp and there was no need for packing. He was admitted to the [facility] and ENT was consulted. Afrin was started as well as nasal saline and mupirocin treatment. His metoprolol was initially reduced to 50% and his heart rate returned to normal after appropriate resuscitation. His metoprolol was then increased back to his 100 mg twice daily dose. On 10/27 H&H went down to 6.3/18.6 despite no further overt bleeding. He was transfused another 2 units of packed red blood cells with appropriate return of blood pressure to normal and a posttransfusion H&H of 7.9/23. He reported having more energy and was hemodynamically stable and afebrile and oxygenating well on room air prior to discharge. Close follow-up with ENT as outpatient is recommended. His warfarin was discontinued at time of discharge temporarily until follow-up with primary care who can restart when they feel it would be safe. Of note physical therapy did recommend inpatient rehab, however the patient declined. He is open to home health and this was set up through case management. Also of note he did have some dark stools likely secondary to swallowed blood. Gastroenterology was consulted and felt this was likely secondary to the patient's swallowed blood during epistaxis. He was offered an upper endoscopy but this was declined. An upper endoscopy and colonoscopy can be considered as outpatient. Defer to PCP. Total Time Total Time Spent Total Time Spent (In Minutes): 60 Total Time Includes: Examination of the Patient, Discharge Planning, Medication Reconciliation and Communication With Other Providers Discharge Plan Discharge Items Patient Disposition: Home - Home Health Services Reason For Visit: SYMPTOMATIC ANEMIA,EPISTAXIS Discharge Diagnosis: epistaxis symptomatic anemia Condition on Discharge: Good Activity: Resume your previous activity Non-emergency contact: Primary Care Provider Call non-emergency contact if: you have any medication questions, your symptoms worsen, your pain is not controlled, your pain is worsening, your pain is unusual for you, your pain is concerning for you and you have a fever Follow-up/Referrals: Yahir Che MD [Primary Care Provider] - Diet: Regular Addtl Attending Provider Instructions: Please take all medications as instructed on discharge list below. It is recommended that you have a follow-up with ENT (Dr. Cason) who saw you in the hospital, as well as your primary care physician within one week of discharge. Someone will contact you after the holiday weekend to set this up. Your warfarin has been stopped temporarily because of the severe bleeding you experienced. Your primary care physician will be able to restart this on follow-up when they determine it is safe to do so. It was a pleasure taking care of you! Please call if you have any questions or problems. You can reach a [facility] hospitalist on duty at [facility] 24 hours a day by calling [phone]. Take care of yourself. Bridgette Cho, DO [facility] Pending Studies at Discharge: No Stand-Alone Forms: My [facility], Smoking Cessation Medications and DC Order Prescriptions: New sodium chloride [Saline Mist] 0.65 % Aerosol,[place] 2 spray ALVARO QID Qty: 44 RF: 0 mupirocin 2 % Ointment 1 applic EXT BID Qty: 30 RF: 1 Continued metoprolol succinate 50 mg Tablet Extended Release 24 Hr 100 mg PO BID RF: 0 digoxin [Digitek] 250 mcg tablet 250 mcg PO QDL RF: 0 Discontinued warfarin 5 mg tablet 7.5 mg PO DAILY RF: 0 Discharge Orders: Discharge Order (Routine); Ordered 10/29/19 Ordered By: Bridgette Cho Admission Data Admit Date/Time: 10/26/19 15:36 Attending Provider: Bridgette Cho Admit Provider: Christoph Eller Primary Care Provider: Yahir Che Other Providers: Christoph Eller ; Rigoberto Cason ; [facility] ; Derek Landrum
[2019-10-29] MEDS: DIGOXIN 0.25 MG TAB PO SCH (10:52)
== END 2019-10-29 12:38 | disposition home health service (06) | DRG 813 ==
LOC: ED 12:51 → 2S 15:36 → SUATTDRO 15:36 → 2S 16:32